=== PATIENT | female | born 1950 | race Caucasian/White ===

== ENCOUNTER 2018-07-14 20:31 | Emergency (ER) | payer OTHER ==
[~2018-07-14] VITALS: Ht 152.4 cm; Wt 55.3 kg
[2018-07-14 20:39] VITALS: Ht 152.4 cm; Wt 55.3 kg
[2018-07-14 22:47] VITALS: BP 144/83
== END 2018-07-14 22:47 | disposition home or self-care (01) ==
LOC: ED 20:31
DX: M16.12 Unilateral primary osteoarthritis, left hip (principal); Z88.5 Allergy status to narcotic agent; Z85.3 Personal history of malignant neoplasm of breast
CPT/HCPCS: J1885